=== PATIENT | male | born 1980 | race African-American/Black ===

== ENCOUNTER 2017-08-16 13:36 | Emergency (ER) | payer OTHER ==
[~2017-08-16] VITALS: Ht 182.9 cm; Wt 138.0 kg
[2017-08-16 13:45] VITALS: BP 142/80; PULSE 76; RESP 16; TEMP 97.8; O2SAT 98
[2017-08-16] MEDS ORDERED: SODIUM CHLOR 0.9% 1000 ML INJ 1,000 ML IV SCH (13:46)
[2017-08-16 13:50] VITALS: RESP 16; O2SAT 98
[2017-08-16] MEDS ORDERED: ONDANSETRON HCL 4 MG/2 ML VIAL IV PUSH ONE (14:00)
[2017-08-16] MEDS ORDERED: SODIUM CHLORIDE 0.9% FLUSH 10 ML FLUSH IVF PRN (14:00)
[2017-08-16] MEDS ORDERED: MORPHINE SULFATE 4 MG/ML INJ IV PUSH ONE (14:00)
[2017-08-16 14:30] LABS: AUTOMATED NEUTROPHIL # 19.6 TH/MM3 (1.8-7.7); BASOPHIL % 0.2 % (0.0-2.0); EOSINOPHIL # 0.1 TH/MM3 (0-0.4); EOSINOPHIL % 0.2 % (0.0-4.0); HEMATOCRIT 45.2 % (39.0-51.0); HEMO FLAGS DIFF FINAL; LYMPH % 7.5 % (9.0-44.0); LYMPHOCYTE # 1.7 TH/MM3 (1.0-4.8); MEAN CELL VOLUME 79.7 FL (80.0-100.0); MEAN CORPUSCULAR HGB CONC 31.3 % (32.0-36.0); MONO % 6.2 % (0.0-8.0); NEUT % 85.9 % (16.0-70.0); PLATELET COUNT 373 TH/MM3 (150-450); RED BLOOD COUNT 5.67 MIL/MM3 (4.50-5.90); RED CELL DISTRIBUTION WIDTH 13.7 % (11.6-17.2); WHITE BLOOD COUNT 22.8 TH/MM3 (4.0-11.0)
[2017-08-16 14:43] LABS: BICARBONATE 28.3 MEQ/L (21.0-32.0)
[2017-08-16 14:44] LABS: POTASSIUM 4.1 MEQ/L (3.5-5.1)
[2017-08-16 15:23] VITALS: BP 147/83; PULSE 89; RESP 19; O2SAT 98
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
[2017-08-16] MEDS ORDERED: IOHEXOL 350 MG/ML 10 ML VIAL (for RAD DIAG) IVCONTRAST ONE (16:23)
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
[2017-08-16] MEDS ORDERED: HYDR-3516 PO (16:49)
[2017-08-16] MEDS ORDERED: NAPR500T2 PO (16:49)
[2017-08-16] MEDS ORDERED: ACETAMINOPHEN/HYDROcodone 325 MG/5 MG TAB PO ONE (17:00)
[2017-08-16] MEDS ORDERED: NAPROXEN 500 MG TAB PO ONE (17:00)
[2017-08-16 17:04] VITALS: BP 133/78; TEMP 98
== END 2017-08-16 17:14 | disposition home or self-care (01) ==
LOC: NEPE 13:36
DX: S22.41XA Multiple fractures of ribs, right side, initial encounter for closed fracture (principal); S12.9XXA Fracture of neck, unspecified, initial encounter; V86.96XA Unspecified occupant of dirt bike or motor/cross bike injured in nontraffic accident, initial encounter; Y93.55 Activity, bike riding
CPT/HCPCS: 70450; 71260; 72125; 72128; 72131; 74177; 80048; 85025; 86850; 86900; 86901; 96361; 96374; 96375; 99285; J2270; J2405; J7030; L0150; Q9967